=== PATIENT | female | born 1965 | race Caucasian/White ===

== ENCOUNTER 2023-02-14 15:47 | Emergency (ER) | payer SELFPAY ==
[~2023-02-14] VITALS: Ht 162.6 cm; Wt 49.9 kg
[2023-02-14 15:48] VITALS: O2SAT 100
[2023-02-14] MEDS ORDERED: BACTRIM DS TAB1 EACH PO (16:59)
[2023-02-14] MEDS ORDERED: KEFLEX125 MG/5 M PO (16:59)
[2023-02-15] MEDS ORDERED: CEPHALEXIN500 MG PO (19:13)
[2023-02-15] MEDS ORDERED: BACTRIM 400-801 EACH PO (19:13)
== END 2023-02-14 17:40 | disposition home or self-care (01) ==
LOC: ER 16:57
DX: L02.31 Cutaneous abscess of buttock (principal); I10 Essential (primary) hypertension
CPT/HCPCS: 99284

== ENCOUNTER 2024-11-10 11:12 | Emergency (ER) | payer SELFPAY ==
[~2024-11-10] VITALS: Ht 167.6 cm; Wt 49.9 kg
[~2024-11-10 11:12] MED LIST: BACTRIM 400-801 EACH PO; BACTRIM DS TAB1 EACH PO; CEPHALEXIN500 MG PO; KEFLEX125 MG/5 M PO
[2024-11-10 11:25] VITALS: PULSE 83; RESP 16; TEMP 97.4; O2SAT 100
[2024-11-10] MEDS ORDERED: CIPROFLOX-DEXA7.5 ML RIGHT EAR (11:49)
[2024-11-10] MEDS ORDERED: AMOX TR-K CLV1 EAC2 PO (11:49)
== END 2024-11-10 11:50 | disposition home or self-care (01) ==
LOC: ER 11:45
DX: H66.91 Otitis media, unspecified, right ear (principal); H60.91 Unspecified otitis externa, right ear; H61.21 Impacted cerumen, right ear; F17.210 Nicotine dependence, cigarettes, uncomplicated
CPT/HCPCS: 99283